=== PATIENT | male | born 1960 | race Caucasian/White ===

== ENCOUNTER → 2017-02-04 | Day surgery (SDC) | payer BC ==
[~2017-02-04] MED LIST: ASPI-630 PO; ATOR20TA58 PO; DAPA5TAB PO; FENO145T2 PO; ICOS1CAP PO; IV RINGERS,LACTATED 1000ML 1,000 ML IV SCH; LIDOCAINE 2% PF Vial for OR 5 ML VIAL. ONE; METF-620 PO; OMEP20CA9 PO; PROPOFOL 40 ML IV ONE; SITA100T PO
[2017-02-04 09:41] VITALS: BP 112/54
--- NOTE | 2017-02-05 10:58 | PATHOLOGY ---
PATHOLOGY REPORT * * * * * * * * FINAL DIAGNOSIS: Colon, ascending, biopsy: - Adenomatous polyp. (SKM:blair; 02/05/2017) REPORT ELECTRONICALLY SIGNED BY: Tristin Rushing M.D. DATE/TIME: 02/05/2017 10:57 * * * * * * * * GROSS PATHOLOGY: Received in formalin labeled "Kian Davis, ascending colon polyp," is a segment of trevino soft tissue measuring 0.3 cm in maximum dimension. The specimen is submitted entirely in cassette A1. (TSD; 02/04/2017) INITIAL CPT CODE(S): A; 66224 Professional services performed by [facility] [place] [address] Technical services performed by [facility] at [address] [place] [address]. SPECIMEN(S) RECEIVED: A.Ascending colon polyp CLINICAL HISTORY: Hx polyps PATIENT: KIAN DAVIS /AGE: 801/07/1960 (Age: 57) PATIENT #: [id number] ALT CASE #: SPECIMEN COLLECTION DATE: 02/04/2017 SPECIMEN RECEIVED DATE: 02/04/2017 [facility] - [address] [place] [address] - PHONE: [phone] * * * END OF REPORT * * *
== END | disposition home or self-care (01) ==
LOC: SURG 08:05
PROVIDERS: ATTEND Internal Medicine Gastroenterology
DX: Z09 Encounter for follow-up examination after completed treatment for conditions other than malignant neoplasm (principal); Z87.19 Personal history of other diseases of the digestive system; K57.30 Diverticulosis of large intestine without perforation or abscess without bleeding; D12.2 Benign neoplasm of ascending colon; E78.00 Pure hypercholesterolemia, unspecified; I10 Essential (primary) hypertension; K21.9 Gastro-esophageal reflux disease without esophagitis; E11.9 Type 2 diabetes mellitus without complications; Z86.39 Personal history of other endocrine, nutritional and metabolic disease; Z91.040 Latex allergy status
CPT/HCPCS: 45380; 88305; J2704; J2001